=== PATIENT | female | born 1980 | race Caucasian/White ===

== ENCOUNTER 2016-09-25 19:28 | Emergency (ER) | payer OTHER ==
[~2016-09-25] VITALS: Ht 172.7 cm; Wt 110.1 kg
[~2016-09-25 19:28] MED LIST: LRT5 PO
[2016-09-25 19:52] VITALS: TEMP 36.6; Ht 172.7 cm; Wt 110.1 kg
[2016-09-25] MEDS ORDERED: LEVO50TA PO (21:06)
[2016-09-25] MEDS ORDERED: BUPR8SUB19 SL (21:06)
[2016-09-25] MEDS ORDERED: VNTHFA/IN INH (21:06)
[2016-09-25 21:24] LABS: BASO % 0.3 %; BASO ABS # 0.04 K/uL (0-0.2); COMPLETE YES; EOS % 10.4 %; HEMATOCRIT 37.6 % (37-47); IG% 0.3 %; LYMPH % 29.8 %; LYMPH ABS # 3.42 K/uL (1.2-3.4); MEAN CELL VOLUME 80.7 fL (80-100); MEAN CORPUSCULAR HEMOGLOBIN 27.7 pg (25-34); MEAN CORPUSCULAR HGB CONC 34.3 g/dl (32-36); MEAN PLATELET VOLUME 10.6 fL (7.4-10.4); MONO % 8.9 %; NEUT % 50.3 %; PLATELET COUNT 333 K/uL (130-400); RED BLOOD COUNT 4.66 M/uL (4.2-5.4); WHITE BLOOD COUNT 11.49 K/uL (4.8-10.8)
[2016-09-25 21:32] VITALS: BP 150/97; PULSE 73; O2SAT 99
[2016-09-25 21:33] LABS: URINE APPEARANCE CLEAR (CLEAR); URINE BILIRUBIN NEG (NEG); URINE COLOR YELLOW; URINE EPITHELIAL CELL AUTO >30 /lpf (0-5); URINE NITRITE NEG (NEG); URINE SPECIFIC GRAVITY 1.016 (1.000-1.030); UROBILINOGEN NEG (NEG)
[2016-09-25 21:34] LABS: MANUAL MICROSCOPIC REQUIRED? NO; REVIEW REQ? YES
--- NOTE | 2016-09-25 21:45 | DIAGNOSTIC IMAGING REPORT ---
CHEST ONE VIEW PORTABLE CLINICAL HISTORY: Severe hypertension. COMPARISON STUDY: No previous studies for comparison. FINDINGS: Lung volumes are normal. Lungs are clear. There is no pneumothorax or pleural effusion. Cardiac size is normal. Mediastinal contours are normal. There is no evidence of pulmonary edema. IMPRESSION: No acute cardiopulmonary findings. Electronically signed by: Panfilo Long M.D. 09/25/2016 9:43 PM Dictated Date/Time: 09/25/2016 9:43 PM
[2016-09-25 22:25] LABS: PARTIAL THROMBOPLASTIN RATIO 1.1; PROTHROMBIN TIME (PATIENT) 10.4 SECONDS (9.0-12.0)
[2016-09-25 22:35] LABS: ALT/SGPT 21 U/L (12-78); BLOOD UREA NITROGEN 18 mg/dl (7-18); BUN/CREATININE RATIO 23.2 (10-20); CALCIUM 8.3 mg/dl (8.5-10.1); CARBON DIOXIDE 25 mmol/L (21-32); CHLORIDE 107 mmol/L (98-107); CREATININE 0.77 mg/dl (0.60-1.20); GLUCOSE 115 mg/dl (70-99); POTASSIUM 3.7 mmol/L (3.5-5.1); SODIUM 139 mmol/L (136-145)
[2016-09-25 22:46] LABS: ALKALINE PHOSPHATASE 67 U/L (45-117); AST/SGOT 12 U/L (15-37); CKMB/CK RATIO 2.6 (0-3.0)
--- NOTE | 2016-09-26 01:26 | EMERGENCY ROOM VISIT NOTE ---
History Report prepared by Felicitas: Negar Lowe Under the Supervision of: Dr. Ko Werner M.D. First contact with patient: 21:08 Chief Complaint: HYPERTENSION Stated Complaint: HIGH BLOOD PRESSURE, HIGH SUGAR History of Present Illness The patient is a 36 year old female who presents to the Emergency Room with complaints of persistent hypertension over the past several weeks. The patient notes that she was at [place] twice in the past several weeks for flu-like symptoms and her blood pressure was high during each of those visits. She was not given any medication at that time because they suggested that she follow with a PCP for blood pressure control. She has been unable to get set up with a PCP because of insurance issues. She notes that she recently got [employer] insurance but has not been able to get to see anyone yet. Along with her high blood pressure, she complains of blurred vision, irritability, increased thirst , and leg swelling. Her leg swelling seems to increase as the day goes on. Tonight, the patient's blood sugar was 150/97. Her blood sugar was 123 earlier today after not eating for 3 hours. The patient is concerned as her mother from heart disease at age 51 and both her father and sister have heart disease. Pt denies LOC, headache, fevers, chills, diaphoresis, visual changes, neck pain, chest pain, breathing difficulties, nausea, vomiting, abdominal pain, back pain, melena, hematochezia, urinary symptoms, numbness, weakness, lymphadenopathy, rash, or other complaints. 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 A total of ten systems were reviewed and were otherwise negative. Past Medical & Surgical Medical Problems: (1) Thyroid disorder Family History Heart disease Social History Smoking Status: Former Smoker Marital Status: single Occupation Status: employed Current/Historical Medications Scheduled Albuterol Hfa (Ventolin Hfa), 2 PUFFS INH Q4H Buprenorphine Hcl (Subutex), 3 TAB SL DAILY Levothyroxine Sodium (Synthroid), 50 MCG PO QAM Allergies Coded Allergies: No Known Allergies (Unverified , 09/25/16) Physical Exam Vital Signs Date Time Temp Pulse Resp B/P Pulse Ox O2 Delivery O2 Flow Rate FiO2 09/25/16 21:32 73 18 150/97 99 Room Air 09/25/16 20:57 75 09/25/16 19:52 36.6 73 20 143/87 98 Room Air Physical Exam GENERAL: Awake, alert, well-appearing, in no distress HENT: Normocephalic, atraumatic. Oropharynx unremarkable. EYES: Normal conjunctiva. Sclera non-icteric. NECK: Supple. No nuchal rigidity. FROM. No JVD. RESPIRATORY: Clear to auscultation. CARDIAC: Regular rate, normal rhythm. Extremities warm and well perfused. Pulses equal. ABDOMEN: Soft, non-distended. No tenderness to palpation. No rebound or guarding. No masses. RECTAL: Deferred. MUSCULOSKELETAL: Chest examination reveals no tenderness. The back is symmetrical on inspection without obvious abnormality. There is no CVA tenderness to palpation. No joint edema. LOWER EXTREMITIES: Calves are equal size bilaterally and non-tender. No edema. No discoloration. NEURO: Normal sensorium. No sensory or motor deficits noted. SKIN: No rash or jaundice noted. Medical Decision & Procedures ER Provider Diagnostic Interpretation: Radiology results as stated below per my review and radiologist interpretation CHEST ONE VIEW PORTABLE CLINICAL HISTORY: Severe hypertension. COMPARISON STUDY: No previous studies for comparison. FINDINGS: Lung volumes are normal. Lungs are clear. There is no pneumothorax or pleural effusion. Cardiac size is normal. Mediastinal contours are normal. There is no evidence of pulmonary edema. IMPRESSION: No acute cardiopulmonary findings. Electronically signed by: Panfilo Long M.D. 09/25/2016 9:43 PM Dictated Date/Time: 09/25/2016 9:43 PM Laboratory Results 09/25/16 21:00 Red Blood Count 4.66, Mean Corpuscular Volume 80.7, Mean Corpuscular Hemoglobin 27.7, Mean Corpuscular Hemoglobin Concent 34.3, Mean Platelet Volume 10.6, Neutrophils (%) (Auto) 50.3, Lymphocytes (%) (Auto) 29.8, Monocytes (%) (Auto) 8.9, Eosinophils (%) (Auto) 10.4, Basophils (%) (Auto) 0.3, Neutrophils # (Auto ) 5.79, Lymphocytes # (Auto) 3.42, Monocytes # (Auto) 1.02, Eosinophils # (Auto ) 1.19, Basophils # (Auto) 0.04 09/25/16 22:01 Test 09/25/16 00:00 09/25/16 21:00 09/25/16 22:01 Urine Color YELLOW Urine Appearance CLEAR (CLEAR) Urine pH 5.0 (4.5-7.5) Urine Specific [place] 1.016 (1.000-1.030) Urine Protein NEG (NEG) Urine Glucose (UA) NEG (NEG) Urine Ketones NEG (NEG) Urine Occult Blood NEG (NEG) Urine Nitrite NEG (NEG) Urine Bilirubin NEG (NEG) Urine Urobilinogen NEG (NEG) Urine Leukocyte Esterase SMALL (NEG) Urine WBC (Auto) 1-5 /hpf (0-5) Urine RBC (Auto) 0-4 /hpf (0-4) Urine Hyaline Casts (Auto) 1-5 /lpf (0-5) Urine Epithelial Cells (Auto) >30 /lpf (0-5) Urine Bacteria (Auto) 1+ (NEG) Urine Test NEG (NEG) White Blood Count 11.49 K/uL (4.8-10.8) Red Blood Count 4.66 M/uL (4.2-5.4) Hemoglobin 12.9 g/dL (12.0-16.0) Hematocrit 37.6 % (37-47) Mean Corpuscular Volume 80.7 fL (80-100) Mean Corpuscular Hemoglobin 27.7 pg (25-34) Mean Corpuscular Hemoglobin Concent 34.3 g/dl (32-36) Platelet Count 333 K/uL (130-400) Mean Platelet Volume 10.6 fL (7.4-10.4) Neutrophils (%) (Auto) 50.3 % Lymphocytes (%) (Auto) 29.8 % Monocytes (%) (Auto) 8.9 % Eosinophils (%) (Auto) 10.4 % Basophils (%) (Auto) 0.3 % Neutrophils # (Auto) 5.79 K/uL (1.4-6.5) Lymphocytes # (Auto) 3.42 K/uL (1.2-3.4) Monocytes # (Auto) 1.02 K/uL (0.11-0.59) Eosinophils # (Auto) 1.19 K/uL (0-0.5) Basophils # (Auto) 0.04 K/uL (0-0.2) RDW Standard Deviation 40.4 fL (36.4-46.3) RDW Coefficient of Variation 13.7 % (11.5-14.5) Immature Granulocyte % (Auto) 0.3 % Immature Granulocyte # (Auto) 0.03 K/uL (0.00-0.02) Prothrombin Time 10.4 SECONDS (9.0-12.0) Prothromb Time International Ratio 1.0 (0.9-1.1) Activated Partial Thromboplast Time 28.3 SECONDS (21.0-31.0) Partial Thromboplastin Ratio 1.1 Anion Gap 7.0 mmol/L (3-11) Est Creatinine Clear Calc Drug Dose 130.1 ml/min Estimated GFR () 114.3 Estimated GFR (Non- 98.6 BUN/Creatinine Ratio 23.2 (10-20) Calcium Level 8.3 mg/dl (8.5-10.1) Total Bilirubin 0.3 mg/dl (0.2-1) Direct Bilirubin < 0.1 mg/dl (0-0.2) Aspartate Amino Transf (AST/SGOT) 12 U/L (15-37) Alanine Aminotransferase (ALT/SGPT) 21 U/L (12-78) Alkaline Phosphatase 67 U/L (45-117) Total Creatine Kinase 103 U/L (26-192) Creatine Kinase MB 2.7 ng/ml (0.5-3.6) Creatine Kinase MB Ratio 2.6 (0-3.0) Troponin I < 0.015 ng/ml (0-0.045) Total Protein 6.9 gm/dl (6.4-8.2) Albumin 3.5 gm/dl (3.4-5.0) Lipase 222 U/L (73-393) Thyroid Stimulating Hormone (TSH) 4.180 uIu/ml (0.300-4.500) Laboratory results reviewed by me ECG Indication: other (hypertension) Rate (beats per minute): 73 Rhythm: normal sinus Findings: nonspecific-ST abn, no acute ischemic change, no ectopy ED Course 2101: The patient was evaluated in room B3. A complete history and physical exam was performed. 2320: I reevaluated the patient. She was feeling fine. Discussed results and discharge instructions: She verbalized understanding and agreement. The patient is ready for discharge. Medical Decision Triage Nursing notes reviewed and agree them. The patient's history was concerning for hypertension. Differential diagnosis: Etiologies such as hypertensive urgency, hypertensive emergency, benign hypertension, cardiovascular pathology, pheochromocytoma, electrolyte abnormality, renal disease, endorgan damage, as well as others were entertained. Physical examination: As above. ER treatment provided: No medication given On reassessment the patient felt better. Diagnostic interpretation by me: The electrocardiogram was negative for pathologic change. The labs revealed a subtle leukocytosis on CBC. Chemistry panel, LFTs, lipase cardiac markers, and TSH were unremarkable. Urinalysis was unremarkable. The patient does note having been told in the past about having a mild elevation of her white blood cell count. Imaging studies: Chest x-ray as above clinically the patient is doing well. She has a mild hypertension. She was concerned and wanted to be checked out. Her testing is excellent and she feels well. She notes just obtaining her insurance. She will need to have close outpatient follow-up. Case management did meet with the patient and provide or information. She believes her insurance will be active tomorrow and will follow-up with the [facility]. She was provided the office information. If she worsens in any way she will come back to the emergency department. I did stress the need for close follow-up regarding her health and hypertension.I gave my usual and customary discussion regarding this issue. By the evaluation outlined above emergent etiologies such as hypertensive emergency, pheochromocytoma, endorgan damage, cardiac ischemia, aortic dissection, pulmonary embolism, pneumonia, pneumothorax, infections, gastrointestinal, as well as others were deemed relatively unlikely. The patient was informed about the findings as listed above. All questions were answered and she was pleased with the treatment. Return instructions were outlined and the patient was discharged in stable condition. Outpatient prescription management: No change The chart was completed utilizing [employer] voice recognition software. Grammatical errors, random word insertions, pronoun errors, and incomplete sentences are an occasional consequence of this system due to software limitations, ambient noise, and hardware issues. Any formal questions or concerns about the content, text, or information contained within the body of this dictation should be directly addressed to the physician for clarification. Impression Primary Impression: Hypertension Scribe Attestation The scribe's documentation has been prepared under my direction and personally reviewed by me in its entirety. I confirm that the note above accurately reflects all work, treatment, procedures, and medical decision making performed by me. Departure Information Dispostion Home / Self-Care Referrals No Doctor, Assigned (PCP) Patient Instructions My [facility] [address] Additional Instructions Continue current medications. Rest and drink plenty of fluids. Follow-up with a primary clinic as discussed tomorrow. Your blood pressure is mildly elevated and needs to be monitored and possibly treated. Return to the ER for worsening feelings of illness, chest pain, difficulty breathing, fevers, vomiting, worsening of your condition, or as needed. Problem Qualifiers Primary Impression: Hypertension Hypertension type: essential hypertension Qualified Codes: I10 - Essential ( primary) hypertension
== END 2016-09-25 23:32 | disposition home or self-care (01) ==
LOC: C.EDB 19:33 → C.EDC 23:32
DX: I10 Essential (primary) hypertension (principal); Z87.891 Personal history of nicotine dependence

== ENCOUNTER 2016-10-03 16:20 | Emergency (ER) | payer OTHER ==
[~2016-10-03] VITALS: Ht 172.7 cm; Wt 115.2 kg
[~2016-10-03 16:20] MED LIST changes: +BUPR8SUB19 SL; +LEVO50TA PO; -LRT5 PO; +VNTHFA/IN INH
[2016-10-03 16:25] VITALS: TEMP 37.2; Ht 172.7 cm; Wt 115.2 kg
[2016-10-03] MEDS ORDERED: NAPR-1169 PO (16:51)
--- NOTE | 2016-10-03 16:52 | EMERGENCY ROOM VISIT NOTE ---
History First contact with patient: 16:26 Chief Complaint: HAND PAIN/INJURY Stated Complaint: B/L HANDS HURTING, BAD History of Present Illness The patient is a 36 year old female who presents to the Emergency Room with complaints of bilateral hand pain. The patient states that she has had problems with her hands for several years. She has been seen several times at the [place] emergency department and been told that she likely has carpal tunnel. She wears splints at home. She started a new job a few weeks ago and states that she works with her hands frequently and this is worsening her symptoms. She has an appointment with a new primary care provider in one week. The patient states that she has been lifting heavy boxes at work which exacerbates her symptoms. She reports occasional numbness but denies any weakness. Review of Systems A complete 6 point review of systems was reviewed with the patient with pertinent positives and negatives as per history of present illness. All else were negative. Past Medical/Surgical History Medical Problems: (1) Thyroid disorder Cholecystectomy, tonsillectomy Family History Heart disease Social History Smoking Status: Former Smoker Alcohol Use: none Marital Status: single Housing Status: lives with roommate Occupation Status: employed Current/Historical Medications Scheduled Buprenorphine Hcl (Subutex), 3 TAB SL DAILY Levothyroxine Sodium (Synthroid), 50 MCG PO QAM Scheduled PRN Albuterol Hfa (Ventolin Hfa), 2 PUFFS INH Q4H PRN for Shortness of Breath Allergies Coded Allergies: No Known Allergies (Unverified , 10/03/16) Physical Exam Vital Signs Date Time Temp Pulse Resp B/P Pulse Ox O2 Delivery O2 Flow Rate FiO2 10/03/16 16:25 37.2 83 18 143/84 99 Room Air Physical Exam VITALS: Vitals are noted on the nurse's note and reviewed by myself. Vital signs stable. GENERAL: This is a 36-year-old female, in no acute distress, nondiaphoretic, well-developed well-nourished. MUSCULOSKELETAL: No erythema or swelling of either hand. Full range of motion of the wrist and all fingers. [employer] strength 5/5. Radial pulses 2+ bilaterally. NEURO: Patient was alert and oriented to person place and time. Sensation to light and sharp touch intact of the bilateral hands. Medical Decision & Procedures Medical Decision The patient was evaluated as above. Exam is unremarkable. She reports that she does have a history of carpal tunnel syndrome. She reports that lifting heavy boxes at work exacerbates her symptoms. She will be given a note to limit lifting at work and will follow-up with her primary care provider next week. She was given an orthopedic referral. She was given a prescription for Naprosyn. She verbalized understanding of my assessment and treatment plan was discharged home in good condition. Impression Primary Impression: Carpal tunnel syndrome Departure Information Dispostion Home / Self-Care Condition GOOD Prescriptions Naproxen (Naprosyn) 500 Mg Tab 500 MG PO BID for 10 Days, #20 TAB Prov: Mariaelena Bishop PA-C 10/03/16 Referrals No Doctor, Assigned (PCP) Ramón Brumfield MD Patient Instructions My [facility] Additional Instructions Naprosyn as prescribed. For pain control, you can use the following [id number] medicines (if >12 yo): - Regular strength (325mg/tab) Tylenol (acetaminophen) 2 tabs every 4-6 hours as needed. Do not exceed 12 tablets in a 24 hour period. Avoid taking more than 4 grams (4000 mg) of Tylenol per day. This includes any other sources of acetaminophen you may take on a regular basis. Follow-up with orthopedics or primary care provider as prescribed. Return to the emergency department with any new/concerning symptoms. Problem Qualifiers Primary Impression: Carpal tunnel syndrome Laterality: bilateral Qualified Codes: G56.03 - Carpal tunnel syndrome, bilateral upper limbs
[2016-10-03 17:09] VITALS: BP 145/95; PULSE 85; O2SAT 98
== END 2016-10-03 17:11 | disposition home or self-care (01) ==
LOC: C.EDB 16:22 → C.EDD 17:11
DX: G56.03 Carpal tunnel syndrome, bilateral upper limbs (principal); E07.9 Disorder of thyroid, unspecified; Z82.49 Family history of ischemic heart disease and other diseases of the circulatory system; Z87.891 Personal history of nicotine dependence

== ENCOUNTER 2016-11-17 08:55 | Emergency (ER) | payer OTHER ==
[~2016-11-17] VITALS: Ht 172.7 cm; Wt 116.9 kg
[2016-11-17 09:03] VITALS: TEMP 36.7; Ht 172.7 cm; Wt 116.9 kg
[2016-11-17] MEDS ORDERED: ALBUT/IPRATROP 3MG/0.5MG NEB 3 ML VIAL INH STA (10:05)
--- NOTE | 2016-11-17 10:10 | EMERGENCY ROOM VISIT NOTE ---
History First contact with patient: 09:55 Chief Complaint: RESPIRATORY PROBLEMS Stated Complaint: ALLERGIES,ASTHMA,WEEZING,STUFFY NOSE Nursing Triage Summary: pt reports asthma is acting up X months ,using nose spray and claritin rescue inhaler not working History of Present Illness The patient is a 36 year old female who presents to the Emergency Room with complaints of cough and wheezing. The patient reports a history that. She states it has been worse over the last several months. She states she has been using nasal decongestant spray and Claritin and her albuterol inhaler without significant improvement. The patient states that occasionally she has to be on steroids. She denies any pain in her chest. She denies any shortness of breath. She denies any pain with deep inspiration. She denies any abdominal pain, nausea or vomiting. Review of Systems A 10 system review of systems was completed with positives and pertinent negatives listed in the HPI. Past Medical/Surgical History Medical Problems: (1) Thyroid disorder Family History Heart disease Social History Smoking Status: Former Smoker Alcohol Use: none Marital Status: single Housing Status: lives with roommate Occupation Status: employed Current/Historical Medications Scheduled Albuterol Sulfate (Proair Respiclick), 1-2 PUFF INH Q6 Buprenorphine Hcl (Subutex), 3 TAB SL DAILY Levothyroxine Sodium (Synthroid), 50 MCG PO QAM Loratadine (Claritin), 10 MG PO DAILY Prednisone (Prednisone), 0 PO DAILY Scheduled PRN Albuterol Hfa (Ventolin Hfa), 2 PUFFS INH Q4H PRN for Shortness of Breath Allergies Coded Allergies: Naloxone (Verified Allergy, Unknown, headache/swelling, 11/17/16) Tramadol (Verified Allergy, Unknown, swelling/can't breathe, 11/17/16) Physical Exam Vital Signs Date Time Temp Pulse Resp B/P Pulse Ox O2 Delivery O2 Flow Rate FiO2 11/17/16 11:02 69 16 130/76 95 Room Air 11/17/16 09:03 36.7 74 18 143/79 96 Room Air Physical Exam VITALS: Vitals are noted on the nurse's note and reviewed by myself. Vital signs stable. The patient is afebrile. GENERAL: This is a 36-year-old female, in no acute distress, nondiaphoretic, well-developed well-nourished. SKIN: The skin was without rashes, erythema, edema, or bruising. There is no tenting of the skin. Capillary reflex less than 2 seconds. HEAD: Normocephalic atraumatic. EARS: External auditory canals clear, tympanic membranes pearly shaver without erythema or effusion bilaterally. EYES: Pupils equal round and reactive to light and accommodation. Conjunctivae without injection, sclerae without icterus. Extraocular movements intact. NOSE: Patent, turbinates without inflammation or discharge. MOUTH: Mucous membranes moist. Tonsils are not enlarged. Pharynx without erythema or exudate. Uvula midline. Airway patent. Tongue does not deviate. NECK: Supple without nuchal rigidity. No lymphadenopathy. No thyromegaly. Cervical spine is nontender. No JVD. HEART: Regular rate and rhythm without murmurs gallops or rubs. LUNGS: There are scattered expiratory wheezes. No dullness to percussion. No retractions or accessory muscle use. ABDOMEN: Positive bowel sounds x 4. Soft, nontender, without masses or organomegaly. MUSCULOSKELETAL: No muscle atrophy, erythema, or edema noted. Full range of motion in all extremities. Strength 5/5 throughout. NEURO: Patient was alert and oriented to person place and time. No focal neurological deficits. Medical Decision & Procedures ER Provider Diagnostic Interpretation: CHEST 2 VIEWS ROUTINE CLINICAL HISTORY: Cough, wheezing COMPARISON STUDY: Chest radiograph September 25, 2016. FINDINGS: There are cholecystectomy clips. Lung volumes are normal. There is no pneumothorax or pleural effusion. There is no consolidation. Mild interstitial thickening is noted. Cardiomediastinal silhouette is normal. IMPRESSION: 1. No consolidation. 2. Mild interstitial thickening, a nonspecific finding. Medications Administered Medications (Trade) Dose Ordered Sig/Willie Route Start Time Stop Time Status Last Admin Dose Admin Albuterol/ Ipratropium (Duoneb) 3 ml NOW STAT INH 11/17/16 10:05 11/17/16 10:06 DC 11/17/16 10:16 3 ML ED Course The patient was seen and examined. Previous visits were reviewed. The patient does not have fever. There is no evidence for pneumonia on chest x-ray. She was given a nebulizer with improvement in her symptoms. The patient did have expiratory wheezes on auscultation. The patient seems to have an exacerbation of her asthma. She will be given a prescription for Claritin at her request, prednisone, albuterol inhaler. She was advised to stop using the nasal decongestant spray. She was given a note for work. She should return to the ER with any worsening symptoms. Otherwise, she should follow-up with her family doctor next week. Medical Decision DIFFERENTIAL DIAGNOSIS: Aortic dissection, myocarditis, pericarditis, cervical disc disease, costochondritis, herpes zoster, rib fracture, pleuritis, pneumonia , pulmonary embolus, tension pneumothorax, anxiety disorder, somatoform disorder , choledocholithiasis, status, esophagitis, esophageal spasm, esophageal reflux , esophageal rupture, pancreatitis, peptic ulcer disease, cardiac ischemia, ST elevation [place], acute coronary syndrome, arrhythmia, coronary artery vasospasm. vavular heart disease, coronary artery disease, among others. Impression Primary Impression: Asthma exacerbation Departure Information Dispostion Home / Self-Care Condition GOOD Prescriptions Prednisone (Prednisone) 20 Mg Tab 0 PO DAILY, #18 TAB 3 DAILY FOR 3 DAYS, THEN 2 DAILY FOR 3 DAYS, THEN 1 DAILY FOR 3 DAYS. Prov: Carole Beltran PA-C 11/17/16 Loratadine (Claritin) 10 Mg Tab 10 MG PO DAILY for 14 Days, #14 TAB Prov: Carole Beltran PA-C 11/17/16 Albuterol Sulfate (Proair Respiclick) 108 Mcg/Act Aer 1-2 PUFF INH Q6, #1 INHALER Prov: Carole Beltran PA-C 11/17/16 Referrals No Doctor, Assigned (PCP) Forms HOME CARE DOCUMENTATION FORM, IMPORTANT VISIT INFORMATION, WORK / SCHOOL INSTRUCTIONS Patient Instructions Asthma, My [facility] Additional Instructions Stop using the nasal decongestant spray Claritin once daily to help with allergy symptoms Prednisone as prescribed, until finished Albuterol inhaler as prescribed, as needed for wheezing Return with worsening symptoms Otherwise, recheck with your family doctor next week Work Instructions Return To Work: 1 day
--- NOTE | 2016-11-17 10:44 | DIAGNOSTIC IMAGING REPORT ---
CHEST 2 VIEWS ROUTINE CLINICAL HISTORY: Cough, wheezing COMPARISON STUDY: Chest radiograph September 25, 2016. FINDINGS: There are cholecystectomy clips. Lung volumes are normal. There is no pneumothorax or pleural effusion. There is no consolidation. Mild interstitial thickening is noted. Cardiomediastinal silhouette is normal. IMPRESSION: 1. No consolidation. 2. Mild interstitial thickening, a nonspecific finding. Electronically signed by: Panfilo Long M.D. 11/17/2016 10:43 AM Dictated Date/Time: 11/17/2016 10:42 AM
[2016-11-17] MEDS ORDERED: CLR10 PO (10:52)
[2016-11-17] MEDS ORDERED: PRED20TA PO (10:52)
[2016-11-17] MEDS ORDERED: ALBU18002 INH (10:52)
[2016-11-17 11:02] VITALS: BP 130/76; PULSE 69; O2SAT 95
== END 2016-11-17 11:15 | disposition home or self-care (01) ==
LOC: C.EDB 08:58 → C.EDC 11:15
DX: J45.901 Unspecified asthma with (acute) exacerbation (principal); Z87.891 Personal history of nicotine dependence